=== PATIENT | male | born 1960 | race Caucasian/White ===

== ENCOUNTER 2022-03-27 10:01 | Outpatient (CLI) | payer BC | END 2022-03-27 10:02 | disposition home or self-care (01) | LOC: CSHLAB 10:01 | PROVIDERS: ATTEND Internal Medicine Gastroenterology | DX: Z20.822 Contact with and (suspected) exposure to COVID-19 (principal) | CPT/HCPCS: 87811 ==

== ENCOUNTER 2022-03-30 09:02 | Day surgery (SDC) | payer BC ==
[2022-03-28 12:49] VITALS: BMI 28.8
[2022-03-30] MEDS ORDERED: Lidocaine 1% MPF 2 ML VIAL ONE (09:45)
[2022-03-30] MEDS ORDERED: Lidocaine 1% PF 5 ML VIAL ONE (10:08)
[2022-03-30] MEDS ORDERED: PROPOFOL 40 ML ONE (10:08)
[2022-03-30] MEDS ORDERED: PROPOFOL 20 ML ONE ×2 (10:21→10:34)
== END 2022-03-30 11:39 | disposition home or self-care (01) ==
LOC: CSHSDC 09:02
PROVIDERS: ATTEND Internal Medicine Gastroenterology
PROC: 0DJD8ZZ Inspection of Lower Intestinal Tract, Via Natural or Artificial Opening Endoscopic (ICD-10-PCS; principal; 2022-03-30)
DX: Z12.11 Encounter for screening for malignant neoplasm of colon (principal); K57.30 Diverticulosis of large intestine without perforation or abscess without bleeding; K64.9 Unspecified hemorrhoids; Z80.0 Family history of malignant neoplasm of digestive organs; Z88.8 Allergy status to other drugs, medicaments and biological substances
CPT/HCPCS: J2704